=== PATIENT | male | born 1975 | race American Indian/Alaskan Native ===

== ENCOUNTER 2018-02-23 16:28 | Emergency (ER) | payer OTHER ==
[2018-02-23 16:51] VITALS: BP 145/109
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
== END 2018-02-24 00:05 | disposition home or self-care (01) ==
LOC: ED 16:28
DX: S13.4XXA Sprain of ligaments of cervical spine, initial encounter (principal); M54.89 Other dorsalgia; V49.9XXA Car occupant (driver) (passenger) injured in unspecified traffic accident, initial encounter; Y93.89 Activity, other specified; Y99.8 Other external cause status; Y92.410 Unspecified street and highway as the place of occurrence of the external cause
CPT/HCPCS: 72100; 99283

== ENCOUNTER 2021-09-09 09:34 | Emergency (ER) | payer SELFPAY ==
[2021-09-09 10:00] VITALS: BP 138/80
--- NOTE | 2021-09-09 10:19 | XRay Report ---
CHEST 2 VIEWS INDICATION / CLINICAL INFORMATION: sob. COMPARISON: None available. FINDINGS: SUPPORT DEVICES: None. HEART / MEDIASTINUM: No significant abnormality. LUNGS / PLEURA: No significant pulmonary or pleural abnormality. No pneumothorax. ADDITIONAL FINDINGS: No significant additional findings. IMPRESSION: 1. No acute findings. Signer Name: Brody Ortiz MD Signed: 09/09/2021 10:14 AM Workstation Name: [id number]
[2021-09-09 11:08] LABS: Basophils % (Auto) 0.4 % (0.0-1.8); Eosinophils % (Auto) 0.9 % (0.0-4.3); Hematocrit 37.1 % (35.5-45.6); Hemoglobin 12.7 gm/dl (11.8-15.2); Lymphocytes # (Auto) 1.6 K/mm3 (1.2-5.4); Lymphocytes % (Auto) 40.9 % (13.4-35.0); Mean Corpuscular HGB Conc 34 % (32-34); Mean Corpuscular Volume 75 fl (84-94); Monocytes # (Auto) 0.6 K/mm3 (0.0-0.8); Platelet Count 284 K/mm3 (140-440); Red Blood Count 4.94 M/mm3 (3.65-5.03); Red Cell Distribution Width 13.7 % (13.2-15.2)
[2021-09-09 11:13] LABS: INR 0.94 (0.87-1.13)
[2021-09-09 11:14] LABS: Partial Thromboplastin Time 30.7 Sec. (24.2-36.6)
[2021-09-09 11:15] LABS: Alanine Aminotransferase 41 units/L (7-56); Albumin 3.8 g/dL (3.9-5); Blood Urea Nitrogen 6 mg/dL (9-20); Calcium 10.3 mg/dL (8.4-10.2); Hemolysis Index 3
[2021-09-09 11:16] LABS: BUN/Creatinine Ratio 10
--- NOTE | 2021-09-10 06:29 | Emergency Department Report ---
ED General Adult HPI - General Chief complaint: Dyspnea/Respdistress Stated complaint: SOB/WEIGHT LOSS Time Seen by Provider: 09/10/21 03:52 Source: patient Mode of arrival: Ambulatory Limitations: No Limitations - History of Present Illness Initial comments: 45-year-old male with no reported past medical history [facility] department complaining of a 1 week history of 20-25 pound weight loss and shortness of breath of unknown etiology over that time as well. Reports no hematuria, no dysuria, no hemoptysis or hematemesis medic easier, no headache and no significant chest pain but does feel weak and fatigued overall -: Gradual Quality: dull Consistency: constant Improves with: none Worsens with: none Associated Symptoms: denies other symptoms Treatments Prior to Arrival: none - Related Data Previous Rx's Medication Instructions Recorded Last Taken Type Ketorolac [Toradol] 10 mg PO Q6H PRN #15 tablet 02/23/18 Unknown Rx methOCARBAMOL [Robaxin] 750 mg PO Q8H PRN #21 tablet 02/23/18 Unknown Rx Allergies Allergy/AdvReac Type Severity Reaction Status Date / Time No Known Allergies Allergy Unverified 02/23/18 16:52 ED Review of Systems ROS: Stated complaint: SOB/WEIGHT LOSS Other details as noted in HPI ED Past Medical Hx - Past Medical History Previous Medical History?: No - Surgical History Past Surgical History?: No - Social History Smoking Status: Never Smoker - Medications Home Medications: Home Medications Medication Instructions Recorded Confirmed Last Taken Type Ketorolac [Toradol] 10 mg PO Q6H PRN #15 tablet 02/23/18 Unknown Rx methOCARBAMOL [Robaxin] 750 mg PO Q8H PRN #21 tablet 02/23/18 Unknown Rx ED Physical Exam - General Limitations: No Limitations General appearance: alert, in no apparent distress - Head Head exam: Present: atraumatic, normocephalic - Eye Eye exam: Present: normal appearance - ENT ENT exam: Present: mucous membranes moist - Neck Neck exam: Present: normal inspection, full ROM - Respiratory Respiratory exam: Present: normal lung sounds bilaterally. Absent: respiratory distress - Cardiovascular Cardiovascular Exam: Present: regular rate, normal rhythm. Absent: systolic murmur, diastolic murmur, rubs, gallop - GI/Abdominal GI/Abdominal exam: Present: soft, normal bowel sounds - Rectal Rectal exam: Present: deferred - Extremities Exam Extremities exam: Present: normal inspection - Back Exam Back exam: Present: normal inspection - Neurological Exam Neurological exam: Present: alert, oriented X3 - Psychiatric Psychiatric exam: Present: normal affect, normal mood - Skin Skin exam: Present: warm, dry, intact, normal color. Absent: rash ED Course Vital Signs 09/09/21 09:57 Temperature 98.9 F Pulse Rate 128 H Respiratory 18 Rate Blood Pressure 138/80 O2 Sat by Pulse 99 Oximetry ED Medical Decision Making - Lab Data Result diagrams: 09/09/21 10:20 09/09/21 10:20 Lab Results 09/09/21 09/09/21 09/09/21 Range/Units 10:20 10:20 10:20 WBC 4.0 L (4.5-11.0) K/mm3 RBC 4.94 (3.65-5.03) M/mm3 Hgb 12.7 (11.8-15.2) gm/dl Hct 37.1 (35.5-45.6) % MCV 75 L (84-94) fl MCH 26 L (28-32) pg MCHC 34 (32-34) % RDW 13.7 (13.2-15.2) % Plt Count 284 (140-440) K/mm3 Lymph % (Auto) 40.9 H (13.4-35.0) % [place] % (Auto) 16.0 H (0.0-7.3) % Eos % (Auto) 0.9 (0.0-4.3) % Baso % (Auto) 0.4 (0.0-1.8) % Lymph # (Auto) 1.6 (1.2-5.4) K/mm3 [place] # (Auto) 0.6 (0.0-0.8) K/mm3 Eos # (Auto) 0.0 (0.0-0.4) K/mm3 Baso # (Auto) 0.0 (0.0-0.1) K/mm3 Seg Neutrophils % 41.8 (40.0-70.0) % Seg Neutrophils # 1.7 L (1.8-7.7) K/mm3 PT 13.6 (12.2-14.9) Sec. INR 0.94 (0.87-1.13) APTT 30.7 (24.2-36.6) Sec. D-Dimer (0-234) ng/mlDDU Sodium 139 (137-145) mmol/L Potassium 3.9 (3.6-5.0) mmol/L Chloride 105.0 (98-107) mmol/L Carbon Dioxide 26 (22-30) mmol/L Anion Gap 12 mmol/L BUN 6 L (9-20) mg/dL Creatinine 0.6 L (0.8-1.3) mg/dL Estimated GFR > 60 ml/min BUN/Creatinine Ratio 10 % Glucose 110 H (75-100) mg/dL Calcium 10.3 H (8.4-10.2) mg/dL Total Bilirubin 1.30 H (0.1-1.2) mg/dL AST 31 (5-40) units/L ALT 41 (7-56) units/L Alkaline Phosphatase 167 H (35-129) units/L Troponin T < 0.010 (0.00-0.029) ng/mL Total Protein 6.7 (6.3-8.2) g/dL Albumin 3.8 L (3.9-5) g/dL Albumin/Globulin Ratio 1.3 % 09/10/21 09/10/21 Range/Units 04:17 04:17 WBC (4.5-11.0) K/mm3 RBC (3.65-5.03) M/mm3 Hgb (11.8-15.2) gm/dl Hct (35.5-45.6) % MCV (84-94) fl MCH (28-32) pg MCHC (32-34) % RDW (13.2-15.2) % Plt Count (140-440) K/mm3 Lymph % (Auto) (13.4-35.0) % [place] % (Auto) (0.0-7.3) % Eos % (Auto) (0.0-4.3) % Baso % (Auto) (0.0-1.8) % Lymph # (Auto) (1.2-5.4) K/mm3 [place] # (Auto) (0.0-0.8) K/mm3 Eos # (Auto) (0.0-0.4) K/mm3 Baso # (Auto) (0.0-0.1) K/mm3 Seg Neutrophils % (40.0-70.0) % Seg Neutrophils # (1.8-7.7) K/mm3 PT (12.2-14.9) Sec. INR (0.87-1.13) APTT (24.2-36.6) Sec. D-Dimer 170.42 (0-234) ng/mlDDU Sodium (137-145) mmol/L Potassium (3.6-5.0) mmol/L Chloride (98-107) mmol/L Carbon Dioxide (22-30) mmol/L Anion Gap mmol/L BUN (9-20) mg/dL Creatinine (0.8-1.3) mg/dL Estimated GFR ml/min BUN/Creatinine Ratio % Glucose (75-100) mg/dL Calcium (8.4-10.2) mg/dL Total Bilirubin (0.1-1.2) mg/dL AST (5-40) units/L ALT (7-56) units/L Alkaline Phosphatase (35-129) units/L Troponin T < 0.010 (0.00-0.029) ng/mL Total Protein (6.3-8.2) g/dL Albumin (3.9-5) g/dL Albumin/Globulin Ratio % - Medical Decision Making 41 male presents emerged from complaining of shortness of breath although maintain normal saturations. 97% on room air Emergency room later in the room with ambulation. Heart rate head resting tachycardia although his D-dimer was negative. No evidence of any infectious processes were noted. No intervention was needed while here emergency de partment advised patient need to follow-up with cardiology or primary care provider for more definitive evaluation Critical care attestation.: If time is entered above; I have spent that time in minutes in the direct care of this critically ill patient, excluding procedure time. ED Disposition Clinical Impression: D dimer value normal, SOB (shortness of breath) Disposition: 01 HOME / SELF CARE / HOMELESS Is pt being admited?: No Does the pt Need Aspirin: No Condition: Stable Instructions: Shortness of Breath, Adult, [id number], Cough, Adult, [id number] Additional Instructions: You were evaluated emergency department today for shortness of breath. Your evaluation has shown no medicals conditions requiring emergent intervention at this time, however recommend that you follow-up with your primary care physician or your proposal lead writer soon as possible for further testing as an outpatient. Please schedule an appointment for follow-up with your primary care physician as soon as possible. Return to emergency department if you expands worsening uncontrolled chest pain, shortness of breath, lightheadedness, feeling faint, nausea, vomiting or any other concerning symptoms. Referrals: PRIMARY CAREMD [Primary Care Provider] - 3-5 Days CAILIN ELLIS MD [Staff Physician] - 3-5 Days
--- NOTE | 2021-09-10 09:38 | Electrocardiograph Report ---
[facility] Test Date: 2021-09-09 Test Time: 10:04:44 Pat Name: MARINA BILLY Department: Room: Gender: M Hepatology Physician: TAVO : 1975 Requested By: ED DOC Order Number: [id number] Reading MD: Primitivo Servin Measurements Intervals [place] Rate: 124 P: 64 TX: 143 QRS: 59 QRSD: 75 T: 54 QT: 296 QTc: 425 Interpretive Statements Sinus tachycardia ST elev, probable normal early repol pattern No previous ECG available for comparison Electronically Signed On 09-10-2021 9:38:31 EDT by Primitivo Servin
== END 2021-09-10 06:27 | disposition home or self-care (01) ==
LOC: ED 09:34
DX: R06.02 Shortness of breath (principal)
CPT/HCPCS: 36415; 71046; 80053; 84484; 85025; 85379; 85610; 85730; 93005; 99283